=== PATIENT | female | born 1960 | race Caucasian/White ===

== ENCOUNTER → 2016-05-20 | Outpatient (CLI) | payer OTHER ==
[2016-05-20 07:37] LABS: HEMOGLOBIN 14.6 g/dL (11.7-16.4)
[2016-05-20 07:45] LABS: ASPARTATE AMINO TRANSFERASE 9 U/L (15-37); BLOOD UREA NITROGEN 13 mg/dL (7-18)
== END | disposition home or self-care (01) ==
LOC: LAB 07:17
PROVIDERS: ATTEND Nurse Practitioner Family
DX: Z13.220 Encounter for screening for lipoid disorders (principal); Z13.1 Encounter for screening for diabetes mellitus; Z00.00 Encounter for general adult medical examination without abnormal findings
CPT/HCPCS: 36415; 80053; 80061; 84443; 85025

== ENCOUNTER → 2018-03-14 | Outpatient (CLI) | payer OTHER ==
[2018-03-14 07:26] LABS: BASOPHILS # (AUTO) 0.03 x10^3/uL (0-0.1); BASOPHILS % (AUTO) 1 % (0-1); EOSINOPHILS # (AUTO) 0.18 x10^3/uL (0-0.4); EOSINOPHILS % (AUTO) 3 % (1-7); LYMPHOCYTES # (AUTO) 2.32 x10^3/uL (1-3.4); LYMPHOCYTES % (AUTO) 41 % (22-44); MD NO; MEAN CORPUSCULAR HEMOGLOBIN 28.1 pg (27.0-34.8); MEAN CORPUSCULAR HGB CONC 32.9 g/dL (32.4-35.8); MEAN CORPUSCULAR VOLUME 85.4 fL (80-100); MEAN PLATELET VOLUME 8.6 fL (7.4-10.4); MONOCYTES # (AUTO) 0.48 x10^3/uL (0.2-0.8); MONOCYTES % (AUTO) 9 % (2-9); NEUTROPHILS # (AUTO) 2.64 x10^3/uL (1.8-6.8); NEUTROPHILS % (AUTO) 47 % (42-75); PLATELET COUNT 231 x10^3/uL (130-400); RED BLOOD COUNT 5.01 x10^6/uL (3.82-5.3); RED CELL DISTRIBUTION WIDTH 15.1 % (9.6-15.2)
[2018-03-14 07:35] LABS: ALANINE AMINOTRANSFERASE 21 U/L (12-78); ANION GAP 2 mmol/L (5-15); CALCIUM 8.9 mg/dL (8.5-10.1); CHLORIDE 111 mmol/L (98-107); CHOLESTEROL, TOTAL 218 mg/dL (140-239); CREATININE 0.78 mg/dL (0.55-1.02)
[2018-03-14 07:46] LABS: ALKALINE PHOSPHATASE 78 U/L (45-117); BILIRUBIN,TOTAL 0.3 mg/dL (0.2-1.0); CHOL/HDL RATIO 2.8; HDL CHOL % 36 % (28-40); HDL CHOLESTEROL (DIRECT) 79 mg/dL (40-60); LDL CHOLESTEROL,CALCULATED 124 mg/dL (54-169); LDL/HDL RATIO 1.6 (0.5-3.0); TOTAL PROTEIN 7.3 g/dL (6.4-8.2); TRIGLYCERIDES 73 mg/dL (50-200); VLDL CHOLESTEROL 15 mg/dL (0-25)
== END | disposition home or self-care (01) ==
LOC: LAB 07:10
PROVIDERS: ATTEND Family Medicine
DX: Z11.51 Encounter for screening for human papillomavirus (HPV) (principal); Z12.39 Encounter for other screening for malignant neoplasm of breast; Z12.4 Encounter for screening for malignant neoplasm of cervix; Z13.1 Encounter for screening for diabetes mellitus; Z13.220 Encounter for screening for lipoid disorders
CPT/HCPCS: 36415; 80053; 80061; 82306; 84443; 85025

== ENCOUNTER → 2018-05-19 | Outpatient (CLI) | payer OTHER ==
[2018-05-19 11:19] LABS: ALANINE AMINOTRANSFERASE 26 U/L (12-78); ALBUMIN 4.2 g/dL (3.4-5.0); BASOPHILS # (AUTO) 0.04 x10^3/uL (0-0.1); BASOPHILS % (AUTO) 1 % (0-1); EOSINOPHILS # (AUTO) 0.18 x10^3/uL (0-0.4); EOSINOPHILS % (AUTO) 3 % (1-7); LYMPHOCYTES # (AUTO) 1.89 x10^3/uL (1-3.4); LYMPHOCYTES % (AUTO) 27 % (22-44); MD NO; MEAN CORPUSCULAR HEMOGLOBIN 27.9 pg (27.0-34.8); MEAN CORPUSCULAR HGB CONC 32.6 g/dL (32.4-35.8); MEAN CORPUSCULAR VOLUME 85.6 fL (80-100); MEAN PLATELET VOLUME 8.9 fL (7.4-10.4); MONOCYTES # (AUTO) 0.87 x10^3/uL (0.2-0.8); MONOCYTES % (AUTO) 13 % (2-9); NEUTROPHILS # (AUTO) 3.93 x10^3/uL (1.8-6.8); NEUTROPHILS % (AUTO) 57 % (42-75); PLATELET COUNT 233 x10^3/uL (130-400); RED BLOOD COUNT 5.11 x10^6/uL (3.82-5.3); RED CELL DISTRIBUTION WIDTH 14.4 % (9.6-15.2)
[2018-05-19 11:21] LABS: ALKALINE PHOSPHATASE 78 U/L (45-117); BILIRUBIN,TOTAL 0.2 mg/dL (0.2-1.0); TOTAL PROTEIN 7.3 g/dL (6.4-8.2)
[2018-05-19 11:22] LABS: BILIRUBIN, DIRECT < 0.1 mg/dL (0.1-0.2); BILIRUBIN,INDIRECT 0.1 mg/dL (0.0-2.0)
== END | disposition home or self-care (01) ==
LOC: LAB 10:51
PROVIDERS: ATTEND Family Medicine
DX: B35.1 Tinea unguium (principal); E55.9 Vitamin D deficiency, unspecified
CPT/HCPCS: 36415; 80076; 82306; 85025

== ENCOUNTER 2018-10-25 08:28 | Outpatient (CLI) | payer OTHER | END 2018-10-25 23:59 | disposition home or self-care (01) | LOC: CFH 08:28 | PROVIDERS: ATTEND Family Medicine | DX: R92.8 Other abnormal and inconclusive findings on diagnostic imaging of breast (principal) | CPT/HCPCS: 76642; 77065; G0279 ==

== ENCOUNTER → 2019-04-13 | Outpatient (CLI) | payer OTHER ==
[2019-04-13 07:38] LABS: ANION GAP 5 mmol/L (5-15); CALCIUM 8.6 mg/dL (8.5-10.1); CHLORIDE 110 mmol/L (98-107); TRIGLYCERIDES 86 mg/dL (50-200); VLDL CHOLESTEROL 17 mg/dL (0-25)
[2019-04-13 07:47] LABS: ALANINE AMINOTRANSFERASE 32 U/L (12-78); ALKALINE PHOSPHATASE 82 U/L (45-117); BILIRUBIN,TOTAL 0.3 mg/dL (0.2-1.0); CHOL/HDL RATIO 3.3; CHOLESTEROL, TOTAL 225 mg/dL (140-239); FREE T4 (FREE THYROXINE) 0.85 ng/dL (0.76-1.46); HDL CHOL % 31 % (28-40); HDL CHOLESTEROL (DIRECT) 69 mg/dL (40-60); LDL CHOLESTEROL,CALCULATED 139 mg/dL (54-169); TOTAL PROTEIN 7.2 g/dL (6.4-8.2)
== END | disposition home or self-care (01) ==
LOC: LAB 07:17
PROVIDERS: ATTEND Family Medicine
DX: Z13.1 Encounter for screening for diabetes mellitus (principal); Z13.220 Encounter for screening for lipoid disorders; E55.9 Vitamin D deficiency, unspecified; G25.81 Restless legs syndrome
CPT/HCPCS: 36415; 80053; 80061; 82306; 84439; 84443

== ENCOUNTER → 2019-11-28 | Outpatient (CLI) | payer OTHER ==
[~2019-11-28] MED LIST: GADOTERATE 7.5 MMOL/15 ML SYR ONE
== END | disposition home or self-care (01) ==
LOC: RAD 15:05
PROVIDERS: ATTEND Specialist
DX: R42 Dizziness and giddiness (principal); I67.82 Cerebral ischemia; H90.42 Sensorineural hearing loss, unilateral, left ear, with unrestricted hearing on the contralateral side
CPT/HCPCS: 70553; A9575

== ENCOUNTER → 2019-12-01 | Outpatient (CLI) | payer OTHER | END | disposition home or self-care (01) | LOC: CFH 15:55 | PROVIDERS: ATTEND Family Medicine | DX: Z12.31 Encounter for screening mammogram for malignant neoplasm of breast (principal) | CPT/HCPCS: 77067 ==

== ENCOUNTER → 2020-04-11 | Outpatient (CLI) | payer OTHER ==
[2020-04-11 08:17] LABS: CHOL/HDL RATIO 2.7; LDL/HDL RATIO 1.5 (0.5-3.0)
== END | disposition home or self-care (01) ==
LOC: LAB 07:50
PROVIDERS: ATTEND Family Medicine
DX: Z13.1 Encounter for screening for diabetes mellitus (principal); Z13.220 Encounter for screening for lipoid disorders; E55.9 Vitamin D deficiency, unspecified
CPT/HCPCS: 36415; 80061; 82306; 83036

== ENCOUNTER → 2020-08-01 | Outpatient (CLI) | payer OTHER ==
[2020-08-01 07:38] LABS: ALANINE AMINOTRANSFERASE 25 U/L (12-78); ALBUMIN 3.9 g/dL (3.4-5.0); ANION GAP 3 mmol/L (5-15); CALCIUM 8.8 mg/dL (8.5-10.1); CHLORIDE 110 mmol/L (98-107)
[2020-08-01 07:40] LABS: ALKALINE PHOSPHATASE 79 U/L (45-117); BILIRUBIN,TOTAL 0.3 mg/dL (0.2-1.0); CREATININE 0.74 mg/dL (0.55-1.02); TOTAL PROTEIN 7.2 g/dL (6.4-8.2)
== END | disposition home or self-care (01) ==
LOC: LAB 07:14
PROVIDERS: ATTEND Family Medicine
DX: R73.09 Other abnormal glucose (principal)
CPT/HCPCS: 36415; 80053; 83036